=== PATIENT | female | born 1975 | race Caucasian/White ===

== ENCOUNTER 2016-10-16 08:33 | Emergency (ER) | payer MEDICAID ==
[2016-10-16 08:51] VITALS: BP 115/84
--- NOTE | 2016-10-16 09:11 | EDM.PDOC ---
ED HPI GENERAL MEDICAL PROBLEM - General Chief Complaint: ENT Problem Stated Complaint: [id number] RIGHT SIDE OF FACE SWELLING Time Seen by Provider: 10/16/16 08:55 Source of Information: Reports: Patient History Limitations: Reports: No Limitations - History of Present Illness INITIAL COMMENTS - FREE TEXT/NARRATIVE: This 41 yo female patient reports to the ED with left jaw pain and swelling. The patient reports she has noticed increased pain over the past 2 days. The patient reports she took some Midol, but the pain did not go away. The patient has not been seen in the clinic. The patient was seen by her dentist about 2 weeks ago and had a clear check-up. Onset: Gradual Onset Date: 10/14/16 Duration: Constant, Getting Worse Location: Reports: Face (left jaw) Quality: Reports: Ache, Dull Severity: Moderate Improves with: Reports: Rest Worsens with: Reports: Movement Associated Symptoms: Reports: No Other Symptoms Treatments PIERCING SPECIALIST: Reports: Other Medication(s) Right Face Pain Score (Numeric/FACES): 4 - Related Data Allergies Allergy/AdvReac Type Severity Reaction Status Date / Time codeine Allergy unknown Verified 12/20/14 10:17 sertraline HCl [From Zoloft] Allergy unknown Verified 12/20/14 10:17 Home Meds: Home Meds Albuterol/Ipratropium [Combivent Respimat] 2 inhaler INH BID PRN 12/20/14 [ History] Ibuprofen 100 mg PO BID PRN 12/20/14 [History] Desvenlafaxine [Desvenlafaxine ER] 50 mg PO DAILY 10/16/16 [History] Past Medical History - Past Health History Medical/Surgical History: Denies Medical/Surgical History HEENT History: Reports: None Cardiovascular History: Reports: None Respiratory History: Reports: Asthma, Other (See Below) Other Respiratory History: RAD Gastrointestinal History: Reports: Other (See Below) Other Gastrointestinal History: gastroenteritis Genitourinary History: Reports: None MATERIALS DIRECTOR History: Reports: None Musculoskeletal History: Reports: Other (See Below) Other Musculoskeletal History: history of SI joint injury. has had MRI Neurological History: Reports: None Psychiatric History: Reports: Depression Endocrine/Metabolic History: Reports: None Hematologic History: Reports: None Immunologic History: Reports: None Oncologic (Cancer) History: Reports: None Dermatologic History: Reports: None Social & Family History - Tobacco Use Smoking Status *Q: Never Smoker Second Hand Smoke Exposure: No - Caffeine Use Caffeine Use: Reports: None - Alcohol Use Days Per Week of Alcohol Use: 0 - Recreational Drug Use Recreational Drug Use: No ED ROS ENT - Review of Systems Review Of Systems: ROS reveals no pertinent complaints other than HPI. ED EXAM, ENT - Physical Exam Exam: See Below Exam Limited By: No Limitations General Appearance: Alert, WD/WN, Mild Distress Eye Exam: Bilateral Eye: EOMI, Normal Inspection, PERRL Ears: Normal External Exam, Normal Canal, Hearing Grossly Normal, Normal TMs Nose: Normal Inspection, Normal Mucousa, No Blood Mouth/Throat: Normal Gums, Normal Lips, Normal Oropharynx, Normal Teeth Head: Atraumatic, Normocephalic, Facial Tenderness (left TMJ) Neck: Normal Inspection, Supple, Non-Tender, Full Range of Motion Respiratory/Chest: No Respiratory Distress, Lungs Clear, Normal Breath Sounds, No Accessory Muscle Use, Chest Non-Tender Cardiovascular: Normal Peripheral Pulses, Regular Rate, Rhythm, No Edema, No Gallop, No JVD, No Murmur, No Rub GI/Abdominal: Normal Bowel Sounds, Soft, Non-Tender, No Organomegaly, No Distention, No Abnormal Bruit, No Mass (Female) Exam: Deferred Rectal (Female) Exam: Deferred Back: Normal Inspection, Full Range of Motion Extremities: Normal Inspection, Normal Range of Motion, Non-Tender, No Pedal Edema, Normal Capillary Refill Neurological: Alert, Oriented, CN II-XII Intact, Normal Cognition, Normal Gait, Normal Reflexes, No Motor/Sensory Deficits Psychiatric: Normal Affect, Normal Mood Skin: Warm, Dry, Intact, Normal Color, No Rash Lymphatic: No Adenopathy Course - Vital Signs Last Recorded V/S: Last Vital Signs Temp 36.4 C 10/16/16 08:35 Pulse 88 10/16/16 08:35 Resp 16 10/16/16 08:35 BP 115/84 10/16/16 08:35 Pulse Ox 99 10/16/16 08:35 Departure - Departure Time of Disposition: 09:05 Disposition: Home, Self-Care 01 Condition: fair Clinical Impression: TMJ (sprain of temporomandibular joint) Qualifiers: Encounter type: initial encounter Qualified Code(s): S03.40XA - Sprain of jaw, unspecified side, initial encounter - Discharge Information Instructions: Temporomandibular Joint Syndrome Forms: ED Department Discharge Care Plan Goals: The patient was advised of the examination results during the visit. The patient was encouraged to take an anti-inflammatory medication (Aleve or ibuprofen) on a regular basis. The patient should avoid repetitive chewing to allow the joint to rest. If the patient has any additional symptoms or concerns , the patient should follow-up with her primary care facility, her dentist or return to the emergency department.
== END 2016-10-16 09:19 | disposition home or self-care (01) ==
LOC: DL.ED 08:33
DX: S03.42XA Sprain of jaw, left side, initial encounter (principal); J45.909 Unspecified asthma, uncomplicated; F32.9 Major depressive disorder, single episode, unspecified; Z88.5 Allergy status to narcotic agent; Z79.899 Other long term (current) drug therapy; X58.XXXA Exposure to other specified factors, initial encounter
CPT/HCPCS: 99283

== ENCOUNTER 2017-05-17 21:53 | Emergency (ER) | payer MEDICAID ==
[2017-05-17] MEDS ORDERED: Nitroglycerin 0.4 MG Tab.SL SL PRN (22:18)
[2017-05-17] MEDS ORDERED: Aspirin 81 MG Tab.Chew PO ONE (22:20)
[2017-05-17 22:31] VITALS: BP 131/111
[2017-05-17 23:30] LABS: CHLORIDE,CL 111 mmol/L (101-111); SODIUM,NA 144 mmol/L (135-145)
--- NOTE | 2017-05-17 23:59 | EDM.PDOC ---
ED HPI GENERAL MEDICAL PROBLEM - General Chief Complaint: Chest Pain Stated Complaint: DIZZINESS,TIGHTNESS IN CHEST [id number] Time Seen by Provider: 05/17/17 22:32 Source of Information: Reports: Patient History Limitations: Reports: No Limitations - History of Present Illness INITIAL COMMENTS - FREE TEXT/NARRATIVE: intermittent chest pain since 8 am this am after starting new medication, under breast area. Onset: Today Duration: Hour(s):, Intermittent Location: Reports: Chest Quality: Reports: Pressure, Sharp, Stabbing Severity: Mild Associated Symptoms: Reports: Other (being under stress,) Left Chest Pain Score (Numeric/FACES): 5 - Related Data Allergies Allergy/AdvReac Type Severity Reaction Status Date / Time codeine Allergy Hives Verified 05/17/17 21:58 sertraline HCl [From Zoloft] Allergy Hives Verified 05/17/17 21:58 Home Meds: Home Meds Albuterol/Ipratropium [Combivent Respimat] 2 inhaler INH BID PRN 12/20/14 [ History] Ibuprofen 100 mg PO BID PRN 12/20/14 [History] Desvenlafaxine [Desvenlafaxine ER] 50 mg PO DAILY 10/16/16 [History] Montelukast Sodium [Singulair] 10 mg PO DAILY 05/17/17 [History] tiZANidine [Zanaflex] 1 tab PO Q4H PRN 05/17/17 [History] Past Medical History - Past Health History Medical/Surgical History: Denies Medical/Surgical History HEENT History: Reports: None Cardiovascular History: Reports: None Respiratory History: Reports: Asthma, Other (See Below) Other Respiratory History: RAD Gastrointestinal History: Reports: Other (See Below) Other Gastrointestinal History: gastroenteritis Genitourinary History: Reports: None CEMETERY COUNSELOR History: Reports: None Musculoskeletal History: Reports: Other (See Below) Other Musculoskeletal History: history of SI joint injury. has had MRI Neurological History: Reports: None Psychiatric History: Reports: Depression Endocrine/Metabolic History: Reports: None Hematologic History: Reports: None Immunologic History: Reports: None Oncologic (Cancer) History: Reports: None Dermatologic History: Reports: None Social & Family History - Tobacco Use Smoking Status *Q: Unknown Ever Smoked Second Hand Smoke Exposure: No - Caffeine Use Caffeine Use: Reports: Soda, Tea - Alcohol Use Days Per Week of Alcohol Use: 0 - Recreational Drug Use Recreational Drug Use: No ED ROS GENERAL - Review of Systems Review Of Systems: See Below Constitutional: Denies: Fever, Chills HEENT: Reports: No Symptoms Respiratory: Reports: No Symptoms, Other (nonsmoker) Cardiovascular: Reports: Chest Pain (below left breast, epigastric area) Endocrine: Denies: Fatigue GI/Abdominal: Denies: Abdominal Pain, Decreased Appetite : Reports: No Symptoms Skin: Reports: No Symptoms Neurological: Reports: No Symptoms Psychiatric: Reports: No Symptoms ED EXAM, GENERAL - Physical Exam Exam: See Below Exam Limited By: Language Barrier General Appearance: Alert, No Apparent Distress, Anxious Eye Exam: Bilateral Eye: EOMI Ears: Normal External Exam, Hearing Grossly Normal, Normal TMs Nose: Normal Inspection, Normal Mucosa Throat/Mouth: Normal Inspection, Normal Lips, Normal Oropharynx, Normal Voice, No Airway Compromise Head: Atraumatic, Normocephalic Neck: Normal Inspection Respiratory/Chest: No Respiratory Distress, Lungs Clear, No Accessory Muscle Use , Chest Non-Tender, Crackles Cardiovascular: Regular Rate, Rhythm GI/Abdominal: Normal Bowel Sounds Back Exam: Full Range of Motion Extremities: Normal Inspection Neurological: Alert, Oriented Psychiatric: Normal Affect Skin Exam: Warm, Dry Course - Vital Signs Last Recorded V/S: Last Vital Signs Temp 97.2 F 05/17/17 22:07 Pulse 73 05/17/17 22:07 Resp 13 05/17/17 22:07 BP 131/111 H 05/17/17 22:31 Pulse Ox 100 05/17/17 22:07 - Orders/Labs/Meds Orders: Active Orders 24 hr Category Date Time Status Cardiac Monitoring [RC] . DIRECTED Care 05/17/17 22:18 Active Cardiac Monitoring [RC] . DIRECTED Care 05/17/17 22:22 Active EKG Documentation Completion [RC] STAT Care 05/17/17 22:01 Active Labs: Laboratory Tests 05/17/17 05/17/17 05/17/17 Range/Units 22:05 22:05 22:05 WBC 8.5 (5.0-10.0) 10^3/uL RBC 4.78 (4.2-5.4) 10^6/uL Hgb 13.5 (12.0-16.0) g/dL Hct 39.5 (37.0-47.0) % MCV 82.6 (80-100) fL MCH 28.2 (27.0-34.0) pg MCHC 34.2 (33.0-35.0) g/dL Plt Count 245 (150-450) 10^3/uL Neut % (Auto) 50.8 (42.2-75.2) % Lymph % (Auto) 37.7 (20.5-50.1) % Lipscomb % (Auto) 9.7 H (2-8) % Eos % (Auto) 1.4 (1.0-3.0) % Baso % (Auto) 0.4 (0.0-1.0) % Sodium 144 (135-145) mmol/L Potassium 3.5 L (3.6-5.0) mmol/L Chloride 111 (101-111) mmol/L Carbon Dioxide 27.0 (21.0-31.0) mmol/L Anion Gap 9.5 BUN 19 H (7-18) mg/dL Creatinine 0.9 (0.6-1.3) mg/dL Est Cr Clr Drug Dosing 68.84 mL/min Estimated GFR (MDRD) > 60 BUN/Creatinine Ratio 21.11 Glucose 85 (74-105) mg/dL Calcium 9.2 (8.4-10.2) mg/dl Total Bilirubin 0.6 (0.2-1.0) mg/dL AST 20 (10-42) IU/L ALT 18 (10-60) IU/L Alkaline Phosphatase 50 (42-121) IU/L CK-MB (CK-2) 1.30 (0.4-4.7) ng/mL Troponin I < 0.02 (0.00-0.02) ng/ml Total Protein 6.8 (6.7-8.2) g/dl Albumin 3.9 (3.2-5.5) g/dl Globulin 2.9 Albumin/Globulin Ratio 1.34 Amylase 52 (28-100) U/L Lipase 34 (22-51) U/L Meds: Medications Discontinued Medications Generic Name Dose Route Start Last Admin Trade Name Freq PRN Reason Stop Dose Admin Aspirin 324 mg 05/17/17 22:20 05/17/17 22:30 Aspirin PO 05/17/17 22:21 324 mg ONETIME ONE Administration Nitroglycerin 0.4 mg 05/17/17 22:18 05/17/17 22:31 Nitrostat SL 05/18/17 22:19 0.4 mg Q5M PRN Administration Chest Pain Departure - Departure Time of Disposition: 23:55 Disposition: Home, Self-Care 01 Condition: Good Clinical Impression: Non-cardiac chest pain Instructions: Nonspecific Chest Pain, [id number] Forms: ED Department Discharge Additional Instructions: Clinic follow up to recheck next week take diclofenac with food urgent follow up if symptoms worsen, sweaty, nausea, - My Orders Last 24 Hours: My Active Orders 05/17/17 22:01 EKG Documentation Completion [RC] STAT 05/17/17 22:18 Cardiac Monitoring [RC] . DIRECTED 05/17/17 22:22 Cardiac Monitoring [RC] . DIRECTED - Assessment/Plan Last 24 Hours: My Active Orders 05/17/17 22:01 EKG Documentation Completion [RC] STAT 05/17/17 22:18 Cardiac Monitoring [RC] . DIRECTED 05/17/17 22:22 Cardiac Monitoring [RC] . DIRECTED
--- NOTE | 2017-05-23 00:02 | EKG ---
05/17/2017 - JACQUELYN TURNER - FINDINGS: I reviewed the EKG and agree with the machine's reading. [facility] /[id number]
== END 2017-05-18 00:13 | disposition home or self-care (01) ==
LOC: DL.ED 21:53
DX: R07.89 Other chest pain (principal); J45.909 Unspecified asthma, uncomplicated; Z88.5 Allergy status to narcotic agent; Z88.8 Allergy status to other drugs, medicaments and biological substances; Z79.899 Other long term (current) drug therapy
CPT/HCPCS: 36415; 71010; 80053; 82150; 82553; 83690; 84484; 85025; 93005; 99285; A9270